=== PATIENT | female | born 1985 | race African-American/Black ===

== ENCOUNTER 2025-01-13 09:34 | Emergency (ER) | payer MEDICAID ==
[~2025-01-13] VITALS: Ht 167.6 cm; Wt 60.0 kg
[2025-01-13 10:02] VITALS: O2SAT 99
[2025-01-13] MEDS ORDERED: AMOX1TAB16 MT (10:54)
[2025-01-13 11:06] VITALS: BP 114/69; PULSE 72; RESP 18; TEMP 36.8; O2SAT 98
== END 2025-01-13 11:07 | disposition home or self-care (01) ==
LOC: ER 09:34
DX: R09.81 Nasal congestion (principal); Z79.899 Other long term (current) drug therapy
CPT/HCPCS: 99283